=== PATIENT | female | born 1990 | race Caucasian/White ===

== ENCOUNTER 2019-04-23 03:06 | Emergency (ER) | payer SELFPAY ==
[~2019-04-23] VITALS: Ht 167.6 cm; Wt 63.5 kg
[2019-04-23 03:15] VITALS: BP_SYST 118
[2019-04-23 03:45] VITALS: BP_SYST 118
== END 2019-04-23 03:45 ==
LOC: SED 03:06
DX: Z02.89 Encounter for other administrative examinations (principal)
CPT/HCPCS: 99283